=== PATIENT | male | born 1995 | race Hispanic/Latino ===

== ENCOUNTER 2018-12-12 00:09 | Emergency (ER) | payer SELFPAY ==
[2018-12-12 00:17] VITALS: BP 150/92; PULSE 81; RESP 16; TEMP 97.5; O2SAT 100
--- NOTE | 2018-12-12 00:41 | ED PDOC ---
HPI: Neurologic - General Time Seen by Provider: 12/12/18 00:19 Chief Complaint (Nursing): Weakness/Neurological Deficit Chief Complaint (Provider): Left Sided Facial Droop Source: patient Exam Limitations: no limitations - History of Present Illness Timing/Duration: other (x5 days) Allergies/Adverse Reactions: Allergies chocolate flavor Allergy (Verified 12/12/18 00:11) RASH peanut Allergy (Verified 12/12/18 00:11) RASH Home Medications: Ambulatory Orders Acyclovir [Zovirax] 800 mg PO 5XD #35 tab 12/12/18 Methylprednisolone [Medrol Dosepak] 4 mg PO ASDIR #1 pkg 12/12/18 Additional Complaint(s): 22 year old male with no pmhx presents to the ED for evaluation of left sided facial droop for the past five days with no improvement since onset. Patient notes he has been avoiding medical care due to his concern over healthcare costs, but self-diagnosed himself with [place]'s Palsy. He presents today wishing to confirm his diagnosis. PMD: none provided Past Medical History Reviewed: Historical Data, Nursing Documentation, Vital Signs Vital Signs: Last Vital Signs Temp 97.5 F L 12/12/18 00:11 Pulse 81 12/12/18 00:11 Resp 16 12/12/18 00:11 BP 150/92 H 12/12/18 00:11 Pulse Ox 100 12/12/18 00:11 - Medical History PMH: No Chronic Diseases Denies: Diabetes, Hepatitis, HIV, HTN, Seizures, Sexually Transmitted Disease - Surgical History Surgical History: No Surg Hx - Family History Family History: States: Unknown Family Hx - Social History Current smoker - smoking cessation education provided: No Ex-Smoker (has not smoked in the last 12 months): No Alcohol: None Drugs: Denies - Home Medications Home Medications: Ambulatory Orders Medication Instructions Recorded Acyclovir [Zovirax] 800 mg PO 5XD #35 tab 12/12/18 Methylprednisolone [Medrol Dosepak] 4 mg PO ASDIR #1 pkg 12/12/18 - Allergies Allergies/Adverse Reactions: Allergies Allergy/AdvReac Type Severity Reaction Status Date / Time chocolate flavor Allergy RASH Verified 12/12/18 00:11 peanut Allergy RASH Verified 12/12/18 00:11 Review of Systems ROS Statement: Except As Marked, All Systems Reviewed And Found Negative Neurological: Positive for: Other (left sided facial droop) Physical Exam - Reviewed Nursing Documentation Reviewed: Yes Vital Signs Reviewed: Yes - Physical Exam Appears: Positive for: No Acute Distress Head Exam: Positive for: ATRAUMATIC, NORMAL INSPECTION, NORMOCEPHALIC Skin: Positive for: Normal Color, Warm, DRY Eye Exam: Positive for: EOMI, Normal appearance, PERRL ENT: Positive for: Normal ENT Inspection Neck: Positive for: Normal, Painless ROM, Supple Cardiovascular/Chest: Positive for: Regular Rate, Rhythm Respiratory: Positive for: Normal Breath Sounds. Negative for: Respiratory Distress Gastrointestinal/Abdominal: Positive for: Normal Exam, Soft. Negative for: Tenderness Extremity: Positive for: Normal ROM (all extremities) Neurologic/Psych: Positive for: Alert, Oriented (x3), Gait (steady, unassisted), Facial Droop (left sided), Other (speech normal). Negative for: Motor/Sensory Deficits - ECG O2 Sat by Pulse Oximetry: 100 (RA) Pulse Ox Interpretation: Normal Medical Decision Making Medical Decision Making: Time: 38 Initial Impression: 22 year old male with [place] Palsy Initial Plan: --Patient offered head CT and labs which he denied due to concern over cost. He is requesting anti-viral and steroid treatment only. Return precautions provided, and patient instructed to follow up at the clinic. Stable for discharge. Scribe Attestation: Documented by Ana Paula Win, acting as a scribe for Hai Ross MD. Provider Scribe Attestation: All medical record entries made by the Scribe were at my direction and personally dictated by me. I have reviewed the chart and agree that the record accurately reflects my personal performance of the history, physical exam, medical decision making, and the department course for this patient. I have also personally directed, reviewed, and agree with the discharge instructions and disposition. Disposition - Clinical Impression Clinical Impression: Elena's palsy - Patient ED Disposition Is Patient to be Admitted: No Counseled Patient/Family Regarding: Diagnosis, Rx Given - Disposition Referrals: [facility] [Outside] Dave Beasley MD [Staff Provider] - Disposition Time: 00:40 Condition: STABLE Prescriptions: Acyclovir [Zovirax] 800 mg PO 5XD #35 tab Methylprednisolone [Medrol Dosepak] 4 mg PO ASDIR #1 pkg Instructions: Elena's Palsy Forms: [facility] ([place]ian)
== END 2018-12-12 00:55 | disposition home or self-care (01) ==
LOC: H.ER 00:09
DX: G51.0 Bell's palsy (principal); Z87.891 Personal history of nicotine dependence